=== PATIENT | male | born 1970 | race Caucasian/White ===

== ENCOUNTER 2022-05-03 11:35 | Emergency (ER) | payer BC, OTHER ==
[~2022-05-03] VITALS: Ht 182.9 cm; Wt 90.7 kg
[2022-05-03] MEDS ORDERED: KETOROLAC 60 MG VIAL (30MG/ML) IM ONE (12:30)
[2022-05-03] MEDS ORDERED: CYCLOBENZAPRINE HCL 10 MG TABLET PO ONE (12:30)
[2022-05-03] MEDS ORDERED: MORPHINE 4 MG SYG IVP ONE (13:30)
[2022-05-03] MEDS ORDERED: ONDANSETRON 4MG INJ IVP ONE (13:30)
[2022-05-03 13:34] LABS: BASOPHILS % (AUTO) 0.6 % (0.0-5.0); EOSINOPHILS % (AUTO) 2.2 % (0.0-8.0); HEMATOCRIT 41.2 % (42-54); LYMPHOCYTES % (AUTO) 27.7 % (21.0-51.0); MEAN CORPUSCULAR HEMOGLOBIN 30.3 pg (27.0-33.0); MEAN CORPUSCULAR HGB CONC 33.5 g/dL (32.0-36.0); MEAN CORPUSCULAR VOLUME 90.5 fL (79-99); MONOCYTES % (AUTO) 12.8 % (3.0-13.0); NEUTROPHILS % (AUTO) 56.4 % (40.0-77.0); PLATELET COUNT (AUTO) 205 K/uL (130-400); RED BLOOD CELL COUNT(AUTO) 4.55 MIL/uL (4.50-6.20); RED CELL DISTRIBUTION WIDTH 13.1 % (11.0-15.5); WHITE BLOOD COUNT (AUTO) 6.8 K/uL (4.8-10.8)
[2022-05-03 13:49] LABS: ALBUMIN 3.4 g/dL (3.5-5.0); CREATININE 1.1 mg/dL (0.5-1.5); POTASSIUM 4.1 mmol/L (3.5-5.1); TOTAL PROTEIN, SERUM 6.6 g/dL (6.0-8.3)
[2022-05-03 14:26] VITALS: BP 98/64
[2022-05-03] MEDS ORDERED: CYCL10TA16 PO (14:57)
== END 2022-05-03 15:37 | disposition home or self-care (01) ==
LOC: EDH 11:35
DX: M54.50 Low back pain, unspecified (principal); M51.36 Other intervertebral disc degeneration, lumbar region; Z90.89 Acquired absence of other organs
CPT/HCPCS: 99284; 72131; 71045; 84484; 80053; 85025; 36415; 96372; 93005; J1885

== ENCOUNTER 2023-01-04 16:22 | Inpatient (IN) | payer BC, OTHER ==
[~2023-01-04] VITALS: Ht 182.9 cm; Wt 91.1 kg
[~2023-01-04 16:22] MED LIST: CYCL10TA16 PO
[2023-01-04 16:48] LABS: BASOPHILS # (AUTO) 0.05 K/uL (0.00-0.20); BASOPHILS % (AUTO) 0.4 % (0.0-5.0); EOSINOPHILS # (AUTO) 0.16 K/uL (0.00-0.70); EOSINOPHILS % (AUTO) 1.2 % (0.0-8.0); HEMATOCRIT 40.5 % (42-54); IMMATURE GRANULOCYTE ABSOLUTE 0.05 K/uL (0-1); LYMPHOCYTES # (AUTO) 1.5 K/uL (1.0-4.8); LYMPHOCYTES % (AUTO) 11.5 % (21.0-51.0); MEAN CORPUSCULAR HEMOGLOBIN 30.6 pg (27.0-33.0); MEAN CORPUSCULAR HGB CONC 34.3 g/dL (32.0-36.0); MEAN CORPUSCULAR VOLUME 89.2 fL (79-99); MONOCYTES # (AUTO) 1.3 K/uL (0.1-1.0); NEUTROPHILS % (AUTO) 76.5 % (40.0-77.0); PLATELET COUNT (AUTO) 218 K/uL (130-400); RED BLOOD CELL COUNT(AUTO) 4.54 MIL/uL (4.50-6.20); RED CELL DISTRIBUTION WIDTH 14.3 % (11.0-15.5); WHITE BLOOD COUNT (AUTO) 13.1 K/uL (4.8-10.8)
[2023-01-04 16:56] LABS: CREATININE 1.2 mg/dL (0.5-1.5); POTASSIUM 4.2 mmol/L (3.5-5.1)
[2023-01-04] MEDS ORDERED: DIPH,PERTUSS(ACELL),TET VAC/PF 0.5 ML VIAL IM ONE (17:00)
[2023-01-04] MEDS ORDERED: 0.9%NACL 1000ML 1,000 ML IV ONE (17:00)
[2023-01-04] MEDS ORDERED: CEFTRIAXONE 1G VIAL IVPB ONE (17:00)
[2023-01-04] MEDS ORDERED: KETOROLAC 15MG/ML VIAL (15MG/ML) IV ONE (17:00)
[2023-01-04 17:01] LABS: ALBUMIN 3.7 g/dL (3.5-5.0); BILIRUBIN,TOTAL 0.5 mg/dL (0.2-1.0)
[2023-01-04] MEDS: CLINDAMYCIN IVPB 600MG/50ML 50 ML IV SCH (17:18)
[2023-01-04] MEDS ORDERED: ONDANSETRON 4MG INJ IVP ONE (18:30)
[2023-01-04] MEDS ORDERED: MORPHINE 4 MG SYG IVP ONE (18:30)
[2023-01-04] MEDS ORDERED: CLINDAMYCIN IVPB 600MG/50ML 50 ML IV SCH (19:00)
[2023-01-04] MEDS ORDERED: ACETAMINOPHEN 325 MG TAB PO PRN ×2 (19:00)
[2023-01-04] MEDS ORDERED: ONDANSETRON 4MG INJ IV PRN (19:00)
[2023-01-04] MEDS: CEFTRIAXONE 1G VIAL IV SCH ×2 (19:00→20:31)
[2023-01-04 19:25] VITALS: O2SAT 98
[2023-01-04] MEDS: 0.9%NACL 1000ML 1,000 ML IV SCH (19:54)
[2023-01-04] MEDS: FAMOTIDINE 20MG VIAL IV SCH (20:33)
[2023-01-04] MEDS: MORPHINE 2 MG SYG IV PRN (20:39)
[2023-01-04 22:00] VITALS: BP 106/71; PULSE 62; RESP 19
[2023-01-05] MEDS ORDERED: HYDROMORPHONE 0.5 MG SYG (0.5MG/0.5ML) IVP ONE
[2023-01-05] MEDS: CLINDAMYCIN IVPB 600MG/50ML 50 ML IV SCH ×2 (01:01→09:26)
[2023-01-05 04:00] VITALS: BP 120/78; PULSE 56; RESP 22
[2023-01-05] MEDS: MORPHINE 2 MG SYG IV PRN ×2 (04:11→09:27)
[2023-01-05] MEDS: KETOROLAC 15MG/ML VIAL (15MG/ML) IV PRN ×2 (04:43→10:34)
[2023-01-05] MEDS: 0.9%NACL 1000ML 1,000 ML IV SCH (05:46)
[2023-01-05 07:00] LABS: BASOPHILS # (AUTO) 0.04 K/uL (0.00-0.20); BASOPHILS % (AUTO) 0.4 % (0.0-5.0); EOSINOPHILS # (AUTO) 0.19 K/uL (0.00-0.70); EOSINOPHILS % (AUTO) 1.9 % (0.0-8.0); HEMATOCRIT 37.6 % (42-54); IMMATURE GRANULOCYTE ABSOLUTE 0.03 K/uL (0-1); LYMPHOCYTES # (AUTO) 1.2 K/uL (1.0-4.8); LYMPHOCYTES % (AUTO) 11.7 % (21.0-51.0); MEAN CORPUSCULAR HGB CONC 32.4 g/dL (32.0-36.0); MEAN CORPUSCULAR VOLUME 92.4 fL (79-99); MONOCYTES # (AUTO) 1.5 K/uL (0.1-1.0); MONOCYTES % (AUTO) 15.2 % (3.0-13.0); NEUTROPHILS # (AUTO) 6.9 K/uL (1.8-7.7); NEUTROPHILS % (AUTO) 70.5 % (40.0-77.0); PLATELET COUNT (AUTO) 171 K/uL (130-400); RED BLOOD CELL COUNT(AUTO) 4.07 MIL/uL (4.50-6.20); RED CELL DISTRIBUTION WIDTH 14.4 % (11.0-15.5); WHITE BLOOD COUNT (AUTO) 9.8 K/uL (4.8-10.8)
[2023-01-05 07:30] LABS: BILIRUBIN,TOTAL 0.5 mg/dL (0.2-1.0); CREATININE 1.2 mg/dL (0.5-1.5); POTASSIUM 4.4 mmol/L (3.5-5.1); TOTAL PROTEIN, SERUM 6.2 g/dL (6.0-8.3)
[2023-01-05 08:00] VITALS: BP 110/69; PULSE 54; RESP 18
[2023-01-05] MEDS ORDERED: ENOXAPARIN SODIUM 30 MG/0.3 ML SQ SCH (09:00)
[2023-01-05] MEDS: FAMOTIDINE 20MG VIAL IV SCH (09:26)
[2023-01-05 11:47] VITALS: BP 128/76; PULSE 66; RESP 20
[2023-01-05] MEDS ORDERED: AMOX1TAB16 PO (12:42)
== END 2023-01-05 13:30 | disposition home or self-care (01) | DRG 603 ==
LOC: EDH 16:22 → EDHIP 16:23 → 4CH 21:12
PROVIDERS: ADMIT Internal Medicine; ATTEND Internal Medicine
DX: L03.113 Cellulitis of right upper limb (principal); G89.29 Other chronic pain; M54.9 Dorsalgia, unspecified
CPT/HCPCS: 36415; 73130; 73140; 76882; 80053; 83605; 84145; 85025; 85651; 86140; 87040; 90715; 99291; G0378; J0696; J1170; J1650; J1885; J2270; J2405; J3490; J7030